=== PATIENT | female | born 1990 | race African-American/Black ===

== ENCOUNTER 2020-08-04 18:31 | Emergency (ER) | payer OTHER | END 2020-08-04 20:05 | disposition left against medical advice (07) | LOC: CSHERS 18:31 | DX: Z53.21 Procedure and treatment not carried out due to patient leaving prior to being seen by health care provider (principal) ==

== ENCOUNTER 2021-04-12 19:28 | Emergency (ER) | payer OTHER ==
[2021-04-12] MEDS ORDERED: Acetaminophen 500 MG TAB ONE (19:42)
[2021-04-13 20:53] LABS: SARS-CoV-2 PCR by NAA DETECTED (NotDetected)
== END 2021-04-12 22:01 | disposition home or self-care (01) ==
LOC: CSHERS 19:28
DX: U07.1 COVID-19 (principal)
CPT/HCPCS: 99283; U0003; U0005

== ENCOUNTER 2021-05-29 03:50 | Emergency (ER) | payer OTHER ==
[2021-05-29] MEDS ORDERED: Boostrix 0.5 ML (Tdap) VIAL ONE (04:27)
[2021-05-29] MEDS ORDERED: Bacitracin 1 PK ONE (04:27)
== END 2021-05-29 05:07 | disposition home or self-care (01) ==
LOC: CSHERS 03:50
DX: S61.052A Open bite of left thumb without damage to nail, initial encounter (principal); Z86.711 Personal history of pulmonary embolism; Y04.1XXA Assault by human bite, initial encounter
CPT/HCPCS: 90471; 90715

== ENCOUNTER 2021-05-30 16:21 | Inpatient (IN) | payer OTHER ==
[2021-05-30 19:46] LABS: #Eosinphils 0.2 10x3/uL (0.0-0.5); #Neutrophils 4.2 10x3/uL (1.5-8.4); %Basophils 0.4 % (0.0-2.0); %Eosinophils 2.7 % (0.0-6.0); %Lymphocytes 38.6 % (18.0-47.0); %Monocytes 10.9 % (0.0-10.0); %Neutrophils 47.2 % (40.0-75.0); Hemoglobin 11.3 g/dL (12.0-15.5); Mean Corpuscular HGB CONC 31.9 g/dL (32.0-36.0); Mean Corpuscular Hemoglobin 25.1 pg (27.0-33.0); Mean Corpuscular Volume 78.7 fl (81.6-98.3); Mean Platelet Volume 11.1 fl (7.4-10.4); Platelet Count 262 10x3/uL (150-450); White Blood Cell (WBC) Count 8.9 10x3/uL (3.5-10.5)
[2021-05-30 20:00] LABS: ALT (SGPT) 17 U/L (8-55); AST (SGOT) 29 U/L (5-34); Albumin 3.6 g/dL (3.5-5.0); Alkaline Phosphatase 62 U/L (40-110); Anion Gap 12 mmol/L (10-20); BUN (Urea Nitrogen) 10 mg/dL (7.0-18.7); Bilirubin, Total 0.4 mg/dL (0.2-1.2); Calc. Creatinine Clearance 0 mL/min (70-130); Calcium 8.6 mg/dL (7.8-10.44); Carbon Dioxide 24 mmol/L (22-29); Chloride 107 mmol/L (98-107); Globulin 3.7 g/dL (2.4-3.5); Glucose 93 mg/dL (70-105); Potassium 4.4 mmol/L (3.5-5.1); Protein, Total 7.3 g/dL (6.0-8.3); Sodium 139 mmol/L (136-145)
[2021-05-30] MEDS ORDERED: Ondansetron PF 4 MG/2 ML Vial ONE (20:28)
[2021-05-30] MEDS ORDERED: HYDROcodone/Acetaminophen 5/325 mg Tablet ONE (20:34)
[2021-05-30 23:36] VITALS: BMI 41.3
[2021-05-30] MEDS ORDERED: Ondansetron ODT 4 MG TAB PO PRN (23:58)
[2021-05-30] MEDS ORDERED: Senokot S 8.6-50 MG TAB PO PRN (23:58)
[2021-05-31] MEDS ORDERED: diphenhydrAMINE 25 MG CAP PO SCH (01:30)
[2021-05-31] MEDS: Morphine 4 MG/ML VIAL SLOW IVP PRN ×5 (01:38→21:10)
[2021-05-31] MEDS: Sodium Chloride 0.9% 1,000 ML IV SCH ×3 (01:39→17:16)
[2021-05-31] MEDS: Aztreonam 1 GM in Sodium Chloride 0.9% 100 ML IVPB SCH ×4 (01:39→17:16)
[2021-05-31 03:12] LABS: SARS-CoV-2 NAA Rapid Test Not Detected (NotDetected)
[2021-05-31] MEDS: Clindamycin/D5W 900 MG in Premix Bag 1 BAG IVPB SCH ×3 (03:42→17:16)
[2021-05-31] MEDS: diphenhydrAMINE 50 MG/ML VIAL IVP PRN ×3 (04:03→21:09)
[2021-05-31 04:18] LABS: #Eosinphils 0.2 10x3/uL (0.0-0.5); #Neutrophils 3.1 10x3/uL (1.5-8.4); %Basophils 0.2 % (0.0-2.0); %Eosinophils 2.6 % (0.0-6.0); %Lymphocytes 45.4 % (18.0-47.0); %Monocytes 12.5 % (0.0-10.0); %Neutrophils 39.2 % (40.0-75.0); Hemoglobin 10.5 g/dL (12.0-15.5); Mean Corpuscular HGB CONC 32.4 g/dL (32.0-36.0); Mean Corpuscular Hemoglobin 25.4 pg (27.0-33.0); Mean Corpuscular Volume 78.3 fl (81.6-98.3); Mean Platelet Volume 11.4 fl (7.4-10.4); Platelet Count 244 10x3/uL (150-450); RBC Distribution Width 13.9 % (11.5-14.5); Red Blood Cell (RBC) Count 4.14 10x6/uL (3.90-5.03)
[2021-05-31 04:34] LABS: Anion Gap 11 mmol/L (10-20); BUN (Urea Nitrogen) 11 mg/dL (7.0-18.7); Calc. Creatinine Clearance 191 mL/min (70-130); Calcium 8.4 mg/dL (7.8-10.44); Carbon Dioxide 23 mmol/L (22-29); Chloride 109 mmol/L (98-107); Glucose 90 mg/dL (70-105); Sodium 139 mmol/L (136-145)
[2021-05-31] MEDS: Enoxaparin Sodium 40 MG/0.4 ML SYRINGE SC SCH (09:13)
[2021-05-31] MEDS ORDERED: Clindamycin/D5W 900 mg/50 ml Premix Bag ONE (17:17)
[2021-05-31 23:35] LABS: Magnesium 1.6 mg/dL (1.6-2.6)
[2021-06-01] MEDS: Morphine 4 MG/ML VIAL SLOW IVP PRN ×4 (01:04→20:05)
[2021-06-01] MEDS: Aztreonam 1 GM in Sodium Chloride 0.9% 100 ML IVPB SCH ×3 (01:05→16:36)
[2021-06-01] MEDS: Clindamycin/D5W 900 MG in Premix Bag 1 BAG IVPB SCH ×3 (01:05→16:33)
[2021-06-01] MEDS: Sodium Chloride 0.9% 1,000 ML IV SCH ×3 (02:17→16:33)
[2021-06-01] MEDS: diphenhydrAMINE 50 MG/ML VIAL IVP PRN ×3 (03:16→20:10)
[2021-06-01 09:09] LABS: Vancomycin, Trough 19.6 ug/mL
[2021-06-01] MEDS: Enoxaparin Sodium 40 MG/0.4 ML SYRINGE SC SCH (09:10)
[2021-06-01] MEDS ORDERED: Clindamycin/D5W 900 mg/50 ml Premix Bag ONE (16:35)
[2021-06-02] MEDS: Clindamycin/D5W 900 MG in Premix Bag 1 BAG IVPB SCH ×3 (00:30→16:29)
[2021-06-02] MEDS: Morphine 4 MG/ML VIAL SLOW IVP PRN ×2 (00:42→09:31)
[2021-06-02] MEDS: Aztreonam 1 GM in Sodium Chloride 0.9% 100 ML IVPB SCH ×3 (01:16→16:29)
[2021-06-02] MEDS: diphenhydrAMINE 50 MG/ML VIAL IVP PRN ×2 (02:02→11:45)
[2021-06-02] MEDS: Sodium Chloride 0.9% 1,000 ML IV SCH ×3 (04:36→14:43)
[2021-06-02] MEDS ORDERED: Neomycin-Polymyxin 1 ML AMP ONE (07:37)
[2021-06-02] MEDS ORDERED: Bupivacaine PF 0.5% 30 ML VIAL ONE (07:37)
[2021-06-02] MEDS ORDERED: Fentanyl 100 MCG/2 ML VIAL ONE ×2 (07:38→08:54)
[2021-06-02] MEDS ORDERED: Midazolam HCl 2 mg/2 ml Vial ONE (07:38)
[2021-06-02] MEDS ORDERED: PROPOFOL 20 ML ONE (07:38)
[2021-06-02] MEDS ORDERED: Ondansetron PF 4 MG/2 ML Vial ONE (07:41)
[2021-06-02] MEDS ORDERED: Dexamethasone 4 mg/ml Vial ONE (07:41)
[2021-06-02] MEDS ORDERED: Ketorolac Tromethamine 30 MG/ML VIAL ONE (07:55)
[2021-06-02] MEDS: Enoxaparin Sodium 40 MG/0.4 ML SYRINGE SC SCH (08:21)
[2021-06-02] MEDS ORDERED: hydrOXYzine 25 MG TAB PO PRN (08:35)
[2021-06-02] MEDS ORDERED: HYDROcodone/Acetaminophen 10/325 mg Tablet PO PRN (08:36)
[2021-06-02] MEDS ORDERED: Ondansetron PF 4 MG/2 ML Vial SLOW IVP PRN (08:36)
[2021-06-02] MEDS ORDERED: TETANUS AND DIPHTHERIA TOX/PF 0.5 ML DISP.SYRIN IM SCH (08:45)
[2021-06-02] MEDS: Aspirin 81 mg Enteric Coated Tablet PO SCH ×2 (09:32→20:03)
[2021-06-02] MEDS: HYDROcodone/Acetaminophen 10/325 mg Tablet PO PRN (11:45)
[2021-06-02] MEDS: Ketorolac Tromethamine 30 MG/ML VIAL IVP SCH ×2 (14:43→20:01)
[2021-06-03] MEDS: diphenhydrAMINE 50 MG/ML VIAL IVP PRN (00:25)
[2021-06-03] MEDS: Clindamycin/D5W 900 MG in Premix Bag 1 BAG IVPB SCH ×2 (00:27→08:17)
[2021-06-03] MEDS: Aztreonam 1 GM in Sodium Chloride 0.9% 100 ML IVPB SCH ×2 (01:25→08:17)
[2021-06-03] MEDS: Ketorolac Tromethamine 30 MG/ML VIAL IVP SCH ×2 (02:01→08:17)
[2021-06-03 05:38] VITALS: BP 118/62; TEMP 98.5
[2021-06-03] MEDS: Sodium Chloride 0.9% 1,000 ML IV SCH ×2 (07:12→08:16)
[2021-06-03] MEDS: HYDROcodone/Acetaminophen 10/325 mg Tablet PO PRN (08:05)
[2021-06-03] MEDS: Aspirin 81 mg Enteric Coated Tablet PO SCH (08:05)
[2021-06-03] MEDS: Enoxaparin Sodium 40 MG/0.4 ML SYRINGE SC SCH (08:06)
== END 2021-06-03 13:07 | disposition home or self-care (01) | DRG 988 ==
LOC: CSHERS 16:21 → CSHTELE 23:33 → INTOOBSV 23:33 → OBSVTOIN 06-01 12:54
PROVIDERS: ADMIT Family Medicine; ATTEND Internal Medicine
PROC: 0L980ZZ Drainage of Left Hand Tendon, Open Approach (ICD-10-PCS; principal; 2021-06-02)
DX: S61.052A Open bite of left thumb without damage to nail, initial encounter (principal); Z68.41 Body mass index [BMI] 40.0-44.9, adult; L02.512 Cutaneous abscess of left hand; Z20.822 Contact with and (suspected) exposure to COVID-19; L03.012 Cellulitis of left finger; F17.210 Nicotine dependence, cigarettes, uncomplicated; E66.01 Morbid (severe) obesity due to excess calories; Y04.1XXA Assault by human bite, initial encounter; Z88.1 Allergy status to other antibiotic agents; Z88.2 Allergy status to sulfonamides; Z86.711 Personal history of pulmonary embolism; Z90.89 Acquired absence of other organs; Z87.59 Personal history of other complications of pregnancy, childbirth and the puerperium
CPT/HCPCS: 36415; 80048; 80053; 80202; 83735; 85025; 87070; 87205; J1100; J1200; J1650; J1885; J1956; J2250; J2270; J2405; J2704; J3010; J3370; J3490; J7030; J7050; S0020; U0002

== ENCOUNTER 2021-10-25 21:37 | Emergency (ER) | payer OTHER | END 2021-10-25 22:11 | disposition home or self-care (01) | LOC: CSHERS 21:37 | DX: U07.1 COVID-19 (principal); F17.210 Nicotine dependence, cigarettes, uncomplicated | CPT/HCPCS: 99283; U0003; U0005 ==

== ENCOUNTER 2021-11-07 08:32 | Emergency (ER) | payer OTHER ==
[2021-11-07] MEDS ORDERED: predniSONE 20 MG TAB ONE (09:09)
== END 2021-11-07 09:08 | disposition home or self-care (01) ==
LOC: CSHERS 08:32
DX: T65.811A Toxic effect of latex, accidental (unintentional), initial encounter (principal); F17.210 Nicotine dependence, cigarettes, uncomplicated
CPT/HCPCS: 99283; J7512

== ENCOUNTER 2022-03-01 22:59 | Emergency (ER) | payer OTHER | END 2022-03-01 23:34 | disposition home or self-care (01) | LOC: CSHERS 22:59 | DX: H66.92 Otitis media, unspecified, left ear (principal); F17.210 Nicotine dependence, cigarettes, uncomplicated | CPT/HCPCS: 99282 ==

== ENCOUNTER 2022-04-01 17:03 | Emergency (ER) | payer OTHER | END 2022-04-01 18:07 | disposition home or self-care (01) | LOC: CSHERS 17:03 | DX: J06.9 Acute upper respiratory infection, unspecified (principal); H92.02 Otalgia, left ear; F17.210 Nicotine dependence, cigarettes, uncomplicated | CPT/HCPCS: 99283 ==

== ENCOUNTER 2022-04-23 05:53 | Emergency (ER) | payer OTHER | END 2022-04-23 06:09 | disposition left against medical advice (07) | LOC: CSHERS 05:53 | DX: Z53.21 Procedure and treatment not carried out due to patient leaving prior to being seen by health care provider (principal) ==

== ENCOUNTER 2022-05-08 10:20 | Emergency (ER) | payer OTHER | END 2022-05-08 11:06 | disposition left against medical advice (07) | LOC: CSHERS 10:20 | DX: Z53.21 Procedure and treatment not carried out due to patient leaving prior to being seen by health care provider (principal) ==

== ENCOUNTER 2022-05-08 18:18 | Emergency (ER) | payer OTHER | END 2022-05-08 18:58 | disposition left against medical advice (07) | LOC: CSHERS 18:18 | DX: Z53.21 Procedure and treatment not carried out due to patient leaving prior to being seen by health care provider (principal) ==

== ENCOUNTER 2022-05-08 23:16 | Emergency (ER) | payer OTHER | END 2022-05-09 01:42 | disposition left against medical advice (07) | LOC: CSHERS 23:16 | DX: Z53.21 Procedure and treatment not carried out due to patient leaving prior to being seen by health care provider (principal) ==

== ENCOUNTER 2022-07-01 11:35 | Emergency (ER) | payer OTHER ==
[2022-07-01] MEDS ORDERED: Ketorolac Tromethamine 30 MG/ML VIAL ONE (11:57)
== END 2022-07-01 12:17 | disposition home or self-care (01) ==
LOC: CSHERS 11:35
DX: K08.89 Other specified disorders of teeth and supporting structures (principal); F17.210 Nicotine dependence, cigarettes, uncomplicated
CPT/HCPCS: 96372; 99282; J1885

== ENCOUNTER 2022-10-28 04:27 | Emergency (ER) | payer OTHER ==
[2022-10-28] MEDS ORDERED: Acetaminophen 500 MG TAB ONE (04:55)
[2022-10-28 05:13] LABS: Hemoglobin 12.2 g/dL (12.0-15.5); Mean Corpuscular HGB CONC 32.4 g/dL (32.0-36.0); Mean Corpuscular Volume 77.3 fl (81.6-98.3); Mean Platelet Volume 10.6 fl (7.4-10.4); Platelet Count 323 10x3/uL (150-450); RBC Distribution Width 13.7 % (11.5-14.5); Red Blood Cell (RBC) Count 4.88 10x6/uL (3.90-5.03); White Blood Cell (WBC) Count 9.4 10x3/uL (3.5-10.5)
[2022-10-28 05:15] LABS: MDiff Complete? YES
[2022-10-28 05:25] LABS: Anion Gap 14 mmol/L (10-20); BUN (Urea Nitrogen) 9 mg/dL (7.0-18.7); Calc. Creatinine Clearance 0 mL/min (70-130); Calcium 8.5 mg/dL (7.8-10.44); Carbon Dioxide 20 mmol/L (22-29); Chloride 107 mmol/L (98-107); Estimated GFR 95; Glucose 96 mg/dL (70-105); Potassium 3.4 mmol/L (3.5-5.1); Sodium 138 mmol/L (136-145)
[2022-10-28 05:45] LABS: BHCG - Serum Negative (NEGATIVE); Pregs Control Background? CLEAR/WHITE (CLR/WHITE); Pregs Control Bar Appear? YES (CONTROL BAR)
[2022-10-28 05:48] LABS: Eosinophils 2 % (0-10); Lymphocytes 45 % (21-51); Monocytes 7 % (0-10); Neutrophil 46 % (42-75)
[2022-10-28 05:49] LABS: Platelet Adequacy Comment Appears Adequate; RBC Morph Comment Within Normal Limits
[2022-10-28] MEDS ORDERED: Ketorolac Tromethamine 30 MG/ML VIAL ONE (09:37)
[2022-10-28 20:03] LABS: GC by PCR, Vaginal Swab Not Detected (NotDetected)
== END 2022-10-28 09:45 | disposition home or self-care (01) ==
LOC: CSHERS 04:27
DX: J18.0 Bronchopneumonia, unspecified organism (principal); N76.0 Acute vaginitis; A59.01 Trichomonal vulvovaginitis; F17.210 Nicotine dependence, cigarettes, uncomplicated
CPT/HCPCS: 71045; 71275; 80048; 84703; 85025; 85379; 87480; 87510; 87591; 87660; 93005; 96374; J1885